=== PATIENT | male | born 1965 | race Two or more races ===

== ENCOUNTER 2023-01-11 15:22 | Emergency (ER) | payer MEDICAID ==
[~2023-01-11] VITALS: Ht 170.2 cm; Wt 62.3 kg
[2023-01-11 15:30] VITALS: TEMP 97.9
[2023-01-11] MEDS ORDERED: BUPR1FIL3 SL (15:30)
[2023-01-11] MEDS ORDERED: BACLOFEN 10 MG TABLET PO ONE (16:30)
[2023-01-11] MEDS ORDERED: KETOROLAC TROMETHAMINE 30 MG/ML VIAL IM ONE (16:30)
[2023-01-11] MEDS ORDERED: LIDOCAINE 5% TRANSDERMAL PATCH TD ONE (16:30)
[2023-01-11] MEDS ORDERED: LIDO700A15 TP (17:36)
[2023-01-11] MEDS ORDERED: BACL10TA PO (17:37)
[2023-01-11 17:51] VITALS: BP 120/62; PULSE 80; RESP 18
== END 2023-01-11 17:53 | disposition home or self-care (01) ==
LOC: EMS 15:24
DX: M54.50 Low back pain, unspecified (principal); F17.210 Nicotine dependence, cigarettes, uncomplicated; Z79.899 Other long term (current) drug therapy
CPT/HCPCS: 99283; 96372; J1885